=== PATIENT | male | born 1955 | race Caucasian/White ===

== ENCOUNTER 2018-10-14 07:37 | Outpatient (CLI) | payer OTHER ==
--- NOTE | 2018-10-14 08:36 | MRI ---
MR the lumbar spine without contrast INDICATION: Right leg and knee pain for 6 months; concern for right-sided radiculopathy COMPARISON: None. TECHNIQUE: Multiplanar multisequence MR images were obtained of lumbar spine without IV contrast. FINDINGS: Bone marrow: Bone marrow signal intensity appears within normal limits. Distal spinal cord and conus: Normal. The conus seen to terminate at L1. Visualized retroperitoneum and paraspinal soft tissues: Normal. Vertebral levels: L5-S1: There is partial sacralization of S1. There is moderate left and mild right facet joint degene rative changes. No appreciable central canal or neural foraminal narrowing is evident.. L4-5: There is moderate facet joint degenerative change, ligamentum flavum hypertrophy and a broad-ba sed disc bulge inducing moderate left lateral recess narrowing with potential for impingement of the traversing left L5 nerve root. The facet osteoarthrosis and disc degenerative disease at this lev el induces mild left and moderate right neural foraminal narrowing. L3-4: There is a broad-based bulge with facet hypertrophy inducing mild neural foraminal narrowing L2-3: There is mild bilateral neural foraminal narrowing due to broad-based disc bulge L1-L2: There is no appreciable central canal or neural foraminal narrowing T12-L1: There is a left paracentral, cephalad extending disc extrusion at T12-L1 mildly effacing the left ventral lateral aspect of the subarachnoid space without cord compression. IMPRESSION: 1. Transitional lumbosacral vertebra. 2. Moderate left lateral recess narrowing at L4-5 with potential for impingement of the traversing le ft L5 nerve root. 3. Moderate right and mild left neural foraminal narrowing at L4-5. 4. Mild neural foraminal narrowing at L3-4 and L2 3 5. Left paracentral, cephalad extending disc extrusion at T12-L1 inducing mild effacement of the left ventrolateral subarachnoid space without cord compression.
--- NOTE | 2018-10-14 09:00 | RAD ---
LUMBAR SPINE 3 VIEWS: Date: 10/14/18 HISTORY: Low back pain, right leg and knee pain for 6 months. FINDINGS: Multilevel disc osteophytosis. Facet arthrosis. No acute fracture or dislocation. IMPRESSION: Lumbar spondylosis. POS: [facility]
== END 2018-10-14 07:38 | disposition home or self-care (01) ==
LOC: TBSIIMAG 07:37
PROVIDERS: ATTEND Neurological Surgery
DX: M47.26 Other spondylosis with radiculopathy, lumbar region (principal); M48.061 Spinal stenosis, lumbar region without neurogenic claudication
CPT/HCPCS: 72100; 72148

== ENCOUNTER 2018-10-14 10:58 | Outpatient (CLI) | payer OTHER ==
--- NOTE | 2018-10-14 12:17 | MRI ---
MR OF THE RIGHT KNEE WITHOUT CONTRAST INDICATION: Right knee pain TECHNIQUE: Axial and coronal PD fat sat, sagittal T2 fat sat, sagittal PD turbo spin echo and T1 gamal nal images were obtained of the right knee. COMPARISON: None. FINDINGS: Joint effusion: None. Semimembranosus-medial gastrocnemius popliteal cyst: There is a small Reilly's cyst containing intra-a rticular bodies. One measures 1.1 x 0.7 cm. An additional measures 9.5 x 0.5 cm. There are additional intra-articular bodies seen within the knee joint. One is seen adjacent to Hoffa's fat pad measuring 1.4 x 0.8 cm. 3 additional intra-articular bodies seen adjacent to the posterior root of the medial meniscus measuring 7 mm, 5 mm and 5 mm. Ligaments: The MCL, PCL, LCLC are intact. There is diffuse mucoid degeneration of the ACL. Extensor mechanism: Intact. Menisci: There is a complex multidirectional tear involving the body and posterior horn of the medial meniscus. There is predominantly horizontally oblique component involving the body and posterior horn of the medial meniscus. There is partial extrusion of the medial meniscus. There is some central free edge fraying of the lateral meniscus body. Articular cartilage: There is diffuse articular cartilage thinning involving the major compartments o f the right knee predominantly affecting the medial femorotibial joint compartment. There are small marginal osteophytes involving all major compartments. Osseous structures: There is some subchondral edema involving the medial femoral condyle. Popliteus and IT band: Normal. IMPRESSION: 1. Mild osteoarthrosis of the right knee. 2. Complex medial meniscal tear 3. Mild degenerative free edge fraying of the central margin of the lateral meniscal body. 4. Mucoid degeneration the ACL 5. Intra-articular bodies
== END 2018-10-14 10:59 | disposition home or self-care (01) ==
LOC: BICMRI 10:58
PROVIDERS: ATTEND Neurological Surgery
DX: M25.561 Pain in right knee (principal); M17.11 Unilateral primary osteoarthritis, right knee; S83.231A Complex tear of medial meniscus, current injury, right knee, initial encounter

== ENCOUNTER 2021-08-08 06:47 | Outpatient (CLI) | payer MEDICARE ==
[2021-08-08 08:35] LABS: #Monocytes 0.5 10x3/uL (0.0-1.1); #Neutrophils 5.4 10x3/uL (1.5-8.4); %Basophils 0.5 % (0.0-2.0); %Eosinophils 0.4 % (0.0-6.0); %Lymphocytes 27.2 % (18.0-47.0); %Monocytes 5.9 % (0.0-10.0); %Neutrophils 65.5 % (40.0-75.0); Hemoglobin 14.7 g/dL (13.5-17.5); Mean Corpuscular HGB CONC 32.6 g/dL (32.0-36.0); Mean Corpuscular Hemoglobin 31.7 pg (27.0-33.0); Mean Corpuscular Volume 97.4 fl (81.2-95.1); Mean Platelet Volume 10.4 fl (7.4-10.4); Platelet Count 174 10x3/uL (150-450); Red Blood Cell (RBC) Count 4.63 10x6/uL (4.32-5.72); White Blood Cell (WBC) Count 8.3 10x3/uL (3.5-10.5)
[2021-08-08 08:42] LABS: Prothrombin Time 10.6 sec (9.5-12.1)
[2021-08-08 08:54] LABS: Anion Gap 12 mmol/L (10-20); BUN (Urea Nitrogen) 39 mg/dL (8.4-25.7); Calc. Creatinine Clearance 0 mL/min (70-130); Calcium 9.1 mg/dL (7.8-10.44); Carbon Dioxide 27 mmol/L (23-31); Chloride 105 mmol/L (98-107); Glucose 91 mg/dL (80-115); Potassium 4.2 mmol/L (3.5-5.1); Sodium 140 mmol/L (136-145)
[2021-08-08 23:50] LABS: SARS-CoV-2 PCR by NAA Not Detected (NotDetected)
== END 2021-08-08 06:48 | disposition home or self-care (01) ==
LOC: LABBT 06:47
PROVIDERS: ATTEND Orthopaedic Surgery
DX: Z01.818 Encounter for other preprocedural examination (principal); M17.12 Unilateral primary osteoarthritis, left knee; Z20.822 Contact with and (suspected) exposure to COVID-19
CPT/HCPCS: 80048; 85025; 85610; 87081; 93005; U0003; U0005; 93010

== ENCOUNTER 2023-12-15 08:54 | Outpatient (CLI) | payer MEDICARE ==
[2023-12-15 10:29] LABS: Mean Corpuscular HGB CONC 34.7 g/dL (32.0-36.0); Mean Corpuscular Hemoglobin 32.1 pg (27.0-33.0); Mean Corpuscular Volume 92.6 fL (81.2-95.1); Mean Platelet Volume 9.8 fL (7.4-10.4); Platelet Count 165 10x3/uL (150-450); RBC Distribution Width 13.9 % (11.5-14.5); Red Blood Cell (RBC) Count 5.29 10x6/uL (4.32-5.72); White Blood Cell (WBC) Count 6.5 10x3/uL (3.5-10.5)
[2023-12-15 10:57] LABS: Anion Gap 13 mmol/L (10-20); BUN (Urea Nitrogen) 15 mg/dL (8.4-25.7); Calc. Creatinine Clearance 0 mL/min (70-130); Calcium 9.9 mg/dL (7.8-10.44); Carbon Dioxide 28 mmol/L (23-31); Chloride 103 mmol/L (98-107); Estimated GFR 80; Glucose 78 mg/dL (80-115); Potassium 3.7 mmol/L (3.5-5.1); Sodium 140 mmol/L (136-145)
== END 2023-12-15 08:55 | disposition home or self-care (01) ==
LOC: LABBT 08:54
PROVIDERS: ATTEND Neurological Surgery
DX: Z01.818 Encounter for other preprocedural examination (principal); M54.16 Radiculopathy, lumbar region
CPT/HCPCS: 80048; 85027; 93005; 93010

== ENCOUNTER 2023-12-18 07:34 | Day surgery (SDC) | payer MEDICARE ==
[2023-12-15 09:39] VITALS: BMI 31.4
[2023-12-18] MEDS ORDERED: PROPOFOL 20 ML ONE (08:18)
[2023-12-18] MEDS ORDERED: Lidocaine 1% PF 5 ML VIAL ONE (08:18)
[2023-12-18] MEDS ORDERED: Rocuronium Bromide 10 MG/ML (10ML VIAL) ONE (08:18)
[2023-12-18] MEDS ORDERED: fentaNYL PF 100 MCG/2 ML SYRINGE ONE (08:18)
[2023-12-18] MEDS ORDERED: Glycopyrrolate 0.2 MG/ML 5 ML SYRINGE ONE ×2 (08:47→10:41)
[2023-12-18] MEDS ORDERED: NEOSTIGMINE 3 MG/3 ML SYRINGE ONE ×2 (08:47→10:41)
[2023-12-18] MEDS ORDERED: CEFAZOLIN 2 GM VIAL ONE ×2 (08:52→14:57)
[2023-12-18] MEDS ORDERED: Sodium Chloride 0.9% 100 ML ONE ×2 (08:53→14:57)
[2023-12-18] MEDS ORDERED: EPINEPHrine 1 MG/ML VIAL ONE (08:57)
[2023-12-18] MEDS ORDERED: Thrombin 5000 UNITS/5 ML VIAL ONE (08:58)
[2023-12-18] MEDS ORDERED: Bupivacaine PF 0.5% 30 ML VIAL ONE (08:58)
[2023-12-18] MEDS ORDERED: Ketorolac Tromethamine 30 MG (1 mL) VIAL ONE (10:26)
[2023-12-18] MEDS ORDERED: Dexamethasone 20 MG/5 ML VIAL ONE (10:26)
[2023-12-18] MEDS ORDERED: Ondansetron PF 4 MG/2 ML Vial ONE (10:26)
[2023-12-18] MEDS ORDERED: HYDROmorphone 2 MG/ML VIAL ONE (10:42)
[2023-12-18] MEDS ORDERED: SUGAMMADEX SODIUM 200 MG/2 ML VIAL ONE (11:01)
[2023-12-18] MEDS ORDERED: Labetalol HCl 100 MG/20 ML VIAL ONE (11:04)
[2023-12-18] MEDS ORDERED: fentaNYL 50 mcg/mL 1 mL Vial ONE (11:46)
[2023-12-18] MEDS ORDERED: Tamsulosin HCl 0.4 MG CAP ONE (12:19)
== END 2023-12-18 16:22 | disposition home or self-care (01) ==
LOC: SDC 07:34
PROVIDERS: ATTEND Neurological Surgery
PROC: 01NB0ZZ Release Lumbar Nerve, Open Approach (ICD-10-PCS; principal; 2023-12-18)
DX: M47.26 Other spondylosis with radiculopathy, lumbar region (principal); M10.9 Gout, unspecified; I10 Essential (primary) hypertension; K21.9 Gastro-esophageal reflux disease without esophagitis; G89.4 Chronic pain syndrome; E78.5 Hyperlipidemia, unspecified; Z96.652 Presence of left artificial knee joint
CPT/HCPCS: 63030; C1713; J0171; J0665; J1100; J1170; J1885; J2405; J2704; J3010; J3490